=== PATIENT | male | born 1995 | race Caucasian/White ===

== ENCOUNTER 2024-06-19 10:56 | Emergency (ER) | payer MEDICAID, SELFPAY ==
[2024-06-19 11:03] VITALS: BP 159/97; PULSE 99; RESP 18; TEMP 37.2; O2SAT 98; BMI 33.9
--- NOTE | 2024-06-19 11:19 | XR_ITS ---
Examination: Testicular sonography complete Technique: Grayscale sonographic images testes with assessment arterial inflow venous outflow Doppler spectral analysis, flow analysis Exam date and time: June 19, 2024 1144 hrs. Indications: Testicular pain intermittent beginning 4 days ago Findings: Right testis 4.9 x 2.4 x 3.5 cm Epididymis 15 mm 9 mm epididymal cyst Arterial flow testicle. No testicular mass Mild hydrocele Left testis 5.2 x 2.7 x 3.3 cm Epididymis 16mm Arterial flow to the testicle. No testicular mass Mild hydrocele Impression: No testicular torsion or testicular mass 9 mm right epididymal cyst Mild bilateral hydroceles
--- NOTE | 2024-06-19 11:19 | XR_ITS ---
Examination: Lumbar spine 3 views Technique one AP lateral coned lateral lower lumbar spine 3 views Exam date and time: June 29, 2024 1128 hrs. Indications: Onset low back pain beginning 3 days ago. Findings: Mild disc narrowing L5-S1 No lumbar fracture No spondylolisthesis No cortical bone destruction Impression: Mild disc narrowing L5-S1
--- NOTE | 2024-06-19 11:20 | XR_ITS ---
Examination: CT abdomen with intravenous contrast CT pelvis with intravenous contrast 2-D coronal reconstructions 2-D sagittal reconstructions Date and time of exam:June 19, 2024 1321 hrs. Comparison August 24, 2020 Indications: Rectal bleeding right testicular pain back pain beginning 2.5 weeks ago. CTDI: vol (mGy) 2822 DLP: (mGycm) 1264 Technique: Multiple axial sections of the abdomen and pelvis have been obtained. 64 slice high-resolution scanner used. 3 mm axial sections have been obtained, post intravenous injection 60 cc [id number] 2-D sagittal, coronal reconstructions obtained. Low dose protocols were performed. One or more of the following dose reduction techniques were used; automated exposure control, adjustment of the mA and/or KV according to patient size, use of iterative reconstruction technique. Findings: No focal liver or splenic lesions No gallstones No pancreatic or adrenal mass No renal or ureteral calculi, no hydronephrosis Appendix is not visualized, no pericecal inflammatory change No bowel obstruction No diverticulitis No significant thickening of the rectal wall No prostatomegaly Contracted urinary bladder L5-S1 2 mm central lumbar disc bulge L4-L5 2 mm central lumbar disc bulge Moderate distention posteriorly L5-S1 Impression: No renal or ureteral calculi, no hydronephrosis No CT findings of appendicitis bowel obstruction or diverticulitis No nonspecific colitis or definite proctitis pattern Moderate disc narrowing posteriorly L5-S1
--- NOTE | 2024-06-19 11:21 | PD.EDRME ---
Rapid Medical Screening Exam [facility] Arrival date/time: 06/19/24 10:56 28-year-old male presents to the emergency department with multiple complaints. 1. Lumbar back pain. 2. Right testicular pain 3. Abdominal pain and bloody stools 2 days. I have greeted and performed a focused initial assessment of this patient. Initial appropriate labs ordered at this time. A comprehensive ED assessment and evaluation of the patient and analysis of all test and completion of medical decision making process will be conducted by additional ED provider. Chief Complaint: GI Bleed Time Seen by Provider: 06/19/24 11:02 Vital signs: Vital Signs Temperature 98.9 F 06/19/24 11:03 Pulse Rate 99 06/19/24 11:03 Respiratory Rate 18 06/19/24 11:03 Blood Pressure 159/97 H 06/19/24 11:03 Pulse Oximetry (%) 98 06/19/24 11:03 Oxygen Delivery Method Room Air 06/19/24 11:03
[2024-06-19 11:50] LABS: Collection Type, Urine Clean Catch; Squamous Epithelial Cell,Urine 0 /hpf (0-5)
[2024-06-19 11:52] LABS: Basophils # (Auto) 0.1 Thou/mm3 (0.0-0.2); Basophils % (Auto) 2 % (0-2.5); Eosinophils # (Auto) 0.7 Thou/mm3 (0.0-0.5); Eosinophils % (Auto) 11 % (0-10); Hematocrit 45.5 % (41.0-53.0); Hemoglobin 15.5 g/dL (13.5-16.0); Immature Granulocytes % (Auto) 0 % (0-0); Lymphocytes # (Auto) 1.8 Thou/mm3 (1.0-4.8); Lymphocytes % (Auto) 28 % (10-50); Mean Corpuscular HGB Conc 34.1 g/dl (31.0-37.0); Mean Corpuscular Hemoglobin 30.3 pg (25.0-35.0); Mean Corpuscular Volume 89 fL (80-100); Monocytes # (Auto) 0.4 Thou/mm3 (0.0-0.8); Monocytes % (Auto) 7 % (0-12); Neutrophils # (Auto) 3.5 Thou/mm3 (1.8-7.7); Neutrophils % (Auto) 53 % (37-80); Nucleated Red Blood Cell % 0 /100 WBC (0); Platelet Count 235 Thou/mm3 (140-440); RDW Standard Deviation 40.2 fL (35.1-43.9); Red Blood Count 5.12 Miln/mm3 (4.50-5.90); White Blood Count 6.5 Thou/mm3 (3.8-10.6)
[2024-06-19 12:16] LABS: Alanine Aminotransferase 33 U/L (10-49); Albumin, Serum 4.8 gm/dL (3.5-5.0); Albumin/Globulin Ratio 1.8 (1.2-2.2); Alkaline Phosphatase 61 U/L (46-116); Anion Gap 7 (7-16); Aspartate Amino Transferase 23 U/L (0-34); BUN/Creatinine Ratio 10 Ratio (12-20); Bilirubin,Total 0.3 mg/dL (0.3-1.2); Blood Urea Nitrogen 9 mg/dL (9-23); Calcium 9.2 mg/dL (8.3-10.6); Calcium (Corrected) 9.2 mg/dL (8.5-10.1); Carbon Dioxide 25.5 mMol/L (20.0-31.0); Chloride 106 mMol/L (98-107); Creatinine (Component) 0.9 mg/dL (0.6-1.3); Globulin 2.6 gm/dL (2.3-3.5); Glucose 99 mg/dL (74-106); Lipase 32 U/L (12-53); Magnesium 1.8 mg/dL (1.6-2.6); Osmolality,Calculated 274 (275-295); Potassium 4.6 mMol/L (3.4-5.1); Sodium 138 mMol/L (136-145); Total Protein 7.4 gm/dL (5.7-8.2); eGFR > 60 See Note
[2024-06-19 12:22] LABS: Bacteria,Urine Rare; Bilirubin,Urine Negative (Negative); Blood,Urine Trace (Negative); Clarity,Urine Clear (Clear/Hazy); Color,Urine Lt-Yellow (Lt Yel-Yel); Glucose, Urine Negative (Negative); Ketones,Urine Negative (Negative); Leukocyte Esterase,Urine Negative (Negative); Nitrite,Urine Negative (Negative); Protein,Urine 1+ (Neg - Trace); RBC,Urine 2 /hpf (0-3); Specific Gravity,Urine 1.025 (1.001-1.035); Urobilinogen,Urine Negative mg/dL (0.0-1.0); WBC,Urine 1 /hpf (0-5)
--- NOTE | 2024-06-19 14:51 | EDNOTE_ITS ---
<Statement entered by Rocio Mason MD - 07/01/24 19:31> As co-signing physician, I was present and available for consult prn. I concur with the plan and care as documented by the midlevel provider. ED GI Bleed RME/HPI General Chief complaint: GI Bleed Stated complaint: lower back pain, rectal bleeding, testicular pain Time Seen by Provider: 06/19/24 11:02 Arrival date/time: 06/19/24 10:56 RME / HPI RME / HPI Narrative: 28-year-old male patient with significant history of mental health problem, came in for evaluation regarding multiple complaints. First patient is having bright red blood per rectum, for the last few days, associated with rectal discomfort, low back pain, and right testicular pain. This been ongoing also for the last few days patient denies any dysuria. Denies any vomiting denies any other complaints patient is ambulatory. Related Data Home Medications ?Medication ?Instructions ?Recorded ?Confirmed acetaminophen 300 mg-codeine 30 mg 1 tab PO Q6H PRN Pa in 08/07/21 08/07/21 tablet Previous Rx's ?Medication ?Instructions ?Recorded cyclobenzaprine 10 mg tablet 10 mg PO TID PRN muscle s pasm #30 06/19/24 tabs hydrocortisone acetate 25 mg 25 mg CA BID #24 ea 06/19 rectal suppository (Anusol-HC) Allergies Allergy/AdvReac Type Severity Reaction Status Date / Time No Known Allergies Allergy Verified 06/19/24 10:59 Review of Systems Review of Systems Narrative Review of Systems: 28-year-old male patient with significant history of mental health problem, came in for evaluation regarding multiple complaints. First patient is having bright red blood per rectum, for the last few days, associated with rectal discomfort, low back pain, and right testicular pain. This been ongoing also for the last few days patient denies any dysuria. Denies any vomiting denies any other complaints patient is ambulatory. ED Exam Narrative Physical exam: 28-year-old male patient with significant history of mental health problem, came in for evaluation regarding multiple complaints. First patient is having bright red blood per rectum, for the last few days, associated with rectal discomfort, low back pain, and right testicular pain. This been ongoing also for the last few days patient denies any dysuria. Denies any vomiting denies any other complaints patient is ambulatory. Course Quality Measures none Orders Category Date Time Status CT Screening NOW Care 06/19/24 11:20 Active NPO STAT Care 06/19/24 11:[address] abdomen pelvis w con Stat Exams 06/19/24 11:20 Completed US testicular Stat Exams 06/19/24 11:19 Completed XR lumbar spine 2-3V Stat Exams 06/19/24 11:19 Completed CBC Stat Lab 06/19/24 11:36 Completed Comprehensive Metabolic Panel Stat Lab 06/19/24 11:36 Completed Lipase Stat Lab 06/19/24 11:36 Completed Magnesium Stat Lab 06/19/24 11:36 Completed Prothrombin Time with INR Stat Lab 06/19/24 11:36 Completed Urinalysis Stat Lab 06/19/24 11:41 Completed Vital Signs Vital signs: Vital Signs Temperature 98.9 F 06/19/24 11:03 Pulse Rate 99 06/19/24 11:03 Respiratory Rate 18 06/19/24 11:03 Blood Pressure 159/97 H 06/19/24 11:03 Pulse Oximetry (%) 98 06/19/24 11:03 Oxygen Delivery Method Room Air 06/19/24 11:03 GI Bleed MDM Narrative MDM Narrative:: 28-year-old male patient with significant history of mental health problem, came in for evaluation regarding multiple complaints. First patient is having bright red blood per rectum, for the last few days, associated with rectal discomfort, low back pain, and right testicular pain. This been ongoing also for the last few days patient denies any dysuria. Denies any vomiting denies any other complaints patient is ambulatory. Patient's workup today all came back unremarkable ultrasound of the scrotum showed hydrocele otherwise no torsion noted. CT scan of the abdomen and pelvis showed L5-S1 disc narrowing otherwise unremarkable. Results discussed with the patient. I did a rectal exam and scrotum exam with the patient's consent, he does not want anybody with us, I did not notice any swelling or tenderness of the scrotum, there is no palpable mass also on the rectal area no redness no bleeding noted Patient appears nontoxic and hemodynamically stable. Patient discharged home and instructed to follow-up with primary care provider in 24 to 48 hours. Instructed to return to the emergency department immediately if worsening of symptoms Patient data External records reviewed:: None Clinical information provided by:: patient Social determinants that could affect healthcare access:: mental health Patient has the following chronic illnesses:: Mental health problem How is presenting disease/condition affected by chronic disease/condition?: uneffected by Evaluation data The following diagnostics were reviewed and interpreted by me:: lab results and radiology exam(s) Lab and/or radiology exams considered but not ordered:: None Interpretation Summary: See results in MDM Medications / Prescriptions Medications or Prescriptions considered but not ordered:: None Medication administrations:: None Consultations Consultation(s) initiated? (list below): No Diagnosis GI bleed differential diagnosis: hemorrhoids, Glenda-Vee syndrome and Lower gastrointestinal hemorrhage Most likely diagnosis given after review of the tests above:: Low back pain, hydrocele, bright red blood per rectum Admission Indicated Admission indicated?: not indicated Explain why admission is indicated or not indicated:: Stable Admission Request Was there a request for admission?: No Disposition Plan Disposition Plan: Discharge Discharge Attestation Discharge Attestation: The patient and all family members were given an opportunity to ask questions and understood the discharge instructions. Discharge instructions specifically effects, indications for sooner follow up or return to the emergency department, and the expected course of current diagnosis. Patient condition: Stable Discharge Plan Plan Patient Disposition: HOME (Self Care) Disposition Comment: Stable Prescriptions/Referrals Prescriptions/Med Rec: New hydrocortisone acetate [Anusol-HC] 25 mg suppository 25 mg CA BID Qty: 24 0RF cyclobenzaprine 10 mg tablet 10 mg PO TID PRN (Reason: muscle spasm) Qty: 30 0RF No Action acetaminophen-codeine 300-30 mg tablet 1 tab PO Q6H PRN (Reason: Pain) Patient Comments: TAKE ONE TABLET BY MOUTH EVERY 6 HOURS NEEDED FOR PAIN FOR 3 DAYS Referrals: Lani Perkins OUTPATIENT INTERVIEWING CLERK [Primary Care Provider] - In 1 week Problem List Clinical Impression: Low back pain, Bright red blood per rectum, Hydrocele Patient/Caregiver Discharge Instructions Discharge Activity: activity as tolerated Education Materials: Back Exercises: Back Press Additional Instructions: Thank you for the opportunity for serving you today. You are stable for discharged . You are advised to: Follow-up with your PCP in 1 to 2 days and as per referral to GI specialist Return to ED for worsening of symptoms Increase oral fluids Take medication as prescribed Print Language: Anguillan Stand Alone Forms: [place] Award Info., Patient Portal Info Letter PA/AUTOMOTIVE SALES SPECIALIST Supervising Physician PA/AUTOMOTIVE SALES SPECIALIST Supervising Physician: MD Demetra
== END 2024-06-19 15:01 | disposition home or self-care (01) ==
PROVIDERS: Nurse Practitioner Primary Care; Emergency Provider Emergency Medicine; PCP Nurse Practitioner Family
DX: N43.3 Hydrocele, unspecified (principal); K62.5 Hemorrhage of anus and rectum; M48.07 Spinal stenosis, lumbosacral region
CPT/HCPCS: 36415; 72100; 74177; 76870; 80053; 81001; 83690; 83735; 85025; 85610; 99285; A4649; Q9967

== ENCOUNTER 2024-10-21 21:41 | Emergency (ER) | payer MEDICAID, SELFPAY ==
[2024-10-21 21:42] VITALS: BMI 31.1
[2024-10-21 22:04] VITALS: BP 149/96; BP 155/102; PULSE 111; RESP 20; TEMP 37.3; O2SAT 98
--- NOTE | 2024-10-21 22:58 | XR_ITS ---
Examination: CT maxillofacial, with contrast 2-D sagittal and coronal reconstructions. 3-D reconstructions Date and time of exam:October 22, 2024 0026 hours INDICATIONS: Bleeding secondary to tooth extractions today CTDI: vol (mGy):15 DLP: (mGycm):271 Technique: Multiple axial images maxillofacial region, 3.0 mm slice thickness, post intravenous injection excc Isovue 370. 2-D sagittal coronal reconstructions. 3-D reconstructions Low dose protocols were performed. One or more of the following dose reduction techniques were used; automated exposure control, adjustment of the mA and/or KV according to patient size, use of iterative reconstruction technique. Findings: Extraction left mandibular molar with soft tissue air density and soft tissue swelling Extraction left maxillary molar with bone discontinuity involving the maxilla and hemorrhage in the left maxillary antrum Air in the soft tissue adjacent to the left maxilla and mandible No organized hematoma IMPRESSION: Mandibular and maxillary tooth extractions as above
[2024-10-21] MEDS: TRANEXAMIC ACID INJ 1,000 MG/10 ML VIAL 1000 MG IV (23:25)
[2024-10-21] MEDS: SODIUM CHLORIDE 0.9% 1000 ML 1,000 ML 500 ML IV (23:25)
[2024-10-21 23:26] VITALS: BP 151/102; PULSE 94; RESP 20; TEMP 37.1; O2SAT 95
[2024-10-21] MEDS: AMPICILLIN/SULBAC INJ 3 GM in SODIUM CHLORIDE 0.9% (POP) 100 ML IV (23:26)
[2024-10-21 23:42] LABS: Basophils % (Auto) 0 % (0-2.5); Eosinophils % (Auto) 0 % (0-10); Hematocrit 44.3 % (41.0-53.0); Hemoglobin 15.3 g/dL (13.5-16.0); Immature Granulocytes % (Auto) 0 % (0-0); Immature Granulocytes Auto 0.05 Thou/mm3 (0.00-0.00); Lymphocytes # (Auto) 0.9 Thou/mm3 (1.0-4.8); Lymphocytes % (Auto) 7 % (10-50); Mean Corpuscular HGB Conc 34.5 g/dl (31.0-37.0); Mean Corpuscular Hemoglobin 30.8 pg (25.0-35.0); Mean Corpuscular Volume 89 fL (80-100); Monocytes # (Auto) 0.7 Thou/mm3 (0.0-0.8); Monocytes % (Auto) 5 % (0-12); Neutrophils # (Auto) 10.9 Thou/mm3 (1.8-7.7); Neutrophils % (Auto) 87 % (37-80); Nucleated Red Blood Cell % 0 /100 WBC (0); Platelet Count 270 Thou/mm3 (140-440); RDW Standard Deviation 41.9 fL (35.1-43.9); Red Blood Count 4.97 Miln/mm3 (4.50-5.90); White Blood Count 12.5 Thou/mm3 (3.8-10.6)
[2024-10-21 23:50] LABS: Partial Thromboplastin Time 27.1 Seconds (22.0-36.0); Prothrombin Time 11.3 Seconds (9.0-12.2)
[2024-10-22] LABS: Alanine Aminotransferase 53 U/L (10-49); Albumin, Serum 4.9 gm/dL (3.5-5.0); Albumin/Globulin Ratio 1.8 (1.2-2.2); Alkaline Phosphatase 47 U/L (46-116); Anion Gap 13 (7-16); Aspartate Amino Transferase 32 U/L (0-34); BUN/Creatinine Ratio 15 Ratio (12-20); Bilirubin,Total 0.8 mg/dL (0.3-1.2); Blood Urea Nitrogen 15 mg/dL (9-23); Calcium 9.4 mg/dL (8.3-10.6); Calcium (Corrected) 9.4 mg/dL (8.5-10.1); Carbon Dioxide 24.2 mMol/L (20.0-31.0); Chloride 102 mMol/L (98-107); Estimated Creatinine Clearance 133.7 mL/min (>60); Globulin 2.7 gm/dL (2.3-3.5); Glucose 115 mg/dL (74-106); Osmolality,Calculated 279 (275-295); Potassium 4.4 mMol/L (3.4-5.1); Sodium 139 mMol/L (136-145); Total Protein 7.6 gm/dL (5.7-8.2); eGFR > 60 See Note
[2024-10-22] MEDS: ONDANSETRON INJ 2 MG/ML INJ 2 ML 4 MG IV (00:02)
[2024-10-22] MEDS: TRANEXAMIC ACID INJ 1,000 MG/10 ML VIAL 1000 MG IV (00:04)
--- NOTE | 2024-10-22 01:22 | PRELIM_ITS ---
CT maxillofacial with intravenous contrast (axial sections with 3D, sagittal and coronal reformats) October 22, 2024 0026 hours Clinical History: Excessive bleeding from dental extractions Findings: The evaluation is limited due to streak artifact from dental implants. There is evidence of left mandibular molar teeth extraction with adjacent packing material in place. There is also evidence of left maxillary molar tooth extraction with erosion/scalloping of the alveolar socket and erosion of the f nohelia of left maxillary sinus. There is left maxillary hemosinus. There is no acute maxillofacial fracture. The right maxillary sinus and bilateral orbital valladares are intact. The globes and other intraorbital contents are unremarkable. The zygomatic arches and mandible are otherwise intact. There is ill-defined soft tissue edema/heme and emphysema overlying the left mandible/maxilla. Impression: Limited evaluation as described. Left mandibular molar teeth extraction with adjacent packing material in place. Left maxillary molar tooth extraction with erosion/scalloping of the alveolar socket and erosion of the floor of left maxillary sinus. Left maxillary hemosinus Ill-defined soft tissue edema/heme and emphysema overlying the left mandible/maxilla. No discrete organized hematoma or contrast blush Report Electronically Signed By: Jelani Ortez 10/22/2024 1:21:38 AM [EST]
[2024-10-22 01:34] VITALS: BP 138/76; PULSE 98; RESP 16; TEMP 36.6; O2SAT 95
--- NOTE | 2024-10-22 02:44 | EDNOTE_ITS ---
<Statement entered by Rocio Mason MD - 10/22/24 18:27> As co-signing physician, I was present and available for consult prn. I concur with the plan and care as documented by the midlevel provider. ED Dental RME/HPI General Chief complaint: Dental/Oral/Throat Stated complaint: WIDSOM TOOTH SURGERY BLEEDING Time Seen by Provider: 10/21/24 22:58 Arrival date/time: 10/21/24 21:41 29M with no significant PMH presents to ED with dental bleeding s/p wisdom tooth surgery in [place] today. Patient states he was fine before leaving facility, but bleeding started spontaneously and has gotten worse. Limitations: no limitations Related Data Home Medications ?Medication ?Instructions ?Recorded ?Confirmed acetaminophen 300 mg-codeine 30 mg 1 tab PO Q6H PRN Pa in 08/07/21 08/07/21 tablet Previous Rx's ?Medication ?Instructions ?Recorded cyclobenzaprine 10 mg tablet 10 mg PO TID PRN muscle s pasm #30 06/19/24 tabs hydrocortisone acetate 25 mg 25 mg VT BID #24 ea 06/19 rectal suppository (Anusol-HC) amoxicillin 875 mg-potassium 1 tab PO BID 7 days #14 t abs 10/22/24 clavulanate 125 mg tablet Allergies Allergy/AdvReac Type Severity Reaction Status Date / Time No Known Allergies Allergy Verified 10/21/24 21:42 Review of Systems Review of Systems Systems Reviewed: All systems reviewed, normal except as documented Constitutional Constitutional: Reports system reviewed and no additional complaints, except as documented, Denies fever(s) and Denies headache(s) ENT Ears, Nose, Mouth, and Throat: Reports as per HPI, Denies disequilibrium, Reports facial pain (dental bleeding) and Denies headache(s) Cardiovascular Cardiovascular: Reports system reviewed and no additional complaints, except as documented, Denies chest pain and Denies dyspnea Respiratory Respiratory: Reports system reviewed and no additional complaints, except as documented, Denies cough and Denies dyspnea Gastrointestinal Gastrointestinal: Reports system reviewed and no additional complaints, except as documented, Denies abdominal pain, Denies nausea and Denies vomiting Neurologic Neurologic: Reports system reviewed and no additional complaints, except as documented, Denies confusion, Denies disequilibrium and Denies headache(s) Psychiatric Psychiatric: Denies confusion Past Medical History Past Medical History NEUROLOGIC: Negative Neurological Disorders or Seizures CARDIAC: Negative Cardiac Disorders or Congestive Heart Failure RESPIRATORY: Positive Asthma; Negative Chronic Obstructive Pulmonary Disease (COPD) GASTROINTESTINAL: Negative Gastrointestinal Disorders GENITOURINARY: Negative Genitourinary Disorders or Renal Disease REPRODUCTIVE: Negative Breast Cancer MUSCULOSKELETAL: Negative Musculoskeletal Disorders ENDOCRINE: Negative Endocrine Disorders, Diabetes Mellitus Type 1 or Diabetes Mellitus Type 2 HEMATOLOGIC: Negative Blood Disorders or Sickle Cell Disease PSYCHO/SOCIAL: Positive Depression and Anxiety OTHER HISTORY: Negative Autoimmune Disease, Blood Transfusions, Blood Transfusion Reaction, Anesthesia Reactions, Organ Transplant, MRSA, Clostridium Difficile or Breast Cancer Surgical History SURGICAL: Positive Abdominal Surgery; Negative Cardiac Surgery, Endocrine Surgery, Ear Surgery, Nephrectomy, Joint Replacement, Neurologic Surgery, Vasectomy or Organ Transplant Social History SMOKING STATUS: Never smoker ED Exam General Limitations: Present no limitations General appearance: Present alert and in no apparent distress Head Head exam: Present atraumatic Eye Eye exam: Present normal appearance, PERRL and EOMI ENT ENT exam: Present mucous membranes moist Expanded ENT Exam Teeth exam: Present other (L dental bleeding) Neck Neck exam: Present normal inspection, full ROM and trachea midline Chest Chest inspection: Present normal inspection and symmetric chest wall rise Respiratory Respiratory exam: Present normal lung sounds bilaterally Cardiovascular Cardiovascular exam: Present regular rate, normal rhythm and normal heart sounds Abdominal Exam Abdominal exam: Present soft and normal bowel sounds Extremities Exam Extremities exam: Present normal inspection and full ROM Back Exam Back exam: Present normal inspection and full ROM Neurological Exam Neurological exam: Present alert, oriented X3 and CN II-XII intact Psychiatric Psychiatric exam: Present normal affect and normal mood Skin Skin exam: Present warm, dry, intact and normal color Course Quality Measures none Orders Category Date Time Status CT Screening NOW Care 10/21/24 22:59 Completed Insert IV NOW Care 10/21/24 23:[address] facial bones w con Stat Exams 10/21/24 22:58 Taken CBC Stat Lab 10/21/24 23:19 Completed CMP [Comprehensive Metabolic Panel] Stat Lab 10/21/24 23:19 Completed INR [Prothrombin Time with INR] Stat Lab 10/21/24 23:19 Completed PTT [Partial Thromboplastin Time] Stat Lab 10/21/24 23:19 Completed Type and Screen Stat Lab 10/21/24 23:19 Completed Ampicillin/Sulbac Inj [Unasyn Inj] 3 gm Med 10/21/24 22:58 Discontinued Sodium Chloride 0.9% (Pop) [NS 0.9% mini bag] 100 ml IV X1 Ondansetron Inj [Zofran Inj] Med 10/21/24 23:39 Discontinued 4 mg IV X1 ONE Sodium Chloride 0.9% 1000 ml [Ns] 1,000 ml Med 10/21/24 22:58 Discontinued IV 500 mls/hr Tranexamic Acid Inj Med 10/21/24 23:05 Discontinued 1,000 mg IV X1 ONE Tranexamic Acid Inj Med 10/21/24 23:41 Discontinued 1,000 mg IV X1 ONE Vital Signs Vital signs: Vital Signs Temperature 99.2 F 10/21/24 22:04 Pulse Rate 111 H 10/21/24 22:04 Respiratory Rate 20 10/21/24 22:04 Blood Pressure 155/102 H 10/21/24 22:04 Pulse Oximetry (%) 98 10/21/24 22:04 Oxygen Delivery Method Room Air 10/21/24 22:04 O2 at 98% on RA and WNLs Dental / Oral MDM Narrative MDM Narrative:: 29M with no significant PMH presents to ED with dental bleeding s/p wisdom tooth surgery in [place] today. Patient states he was fine before leaving facility, but bleeding started spontaneously and has gotten worse. Patient was discharged with amoxicillin. Physical exam reveals bleeding from L upper and lower wisdom teeth area/pocket. Patient is afebrile, calm, and alert. Minimal leukocytosis but no anemia. CMP unremarkable. Coags normal. CT reveals some L maxillary hemosinus, but no definite hematoma. Bleeding was stopped with combo of topical and parenteral TXA. Will switch amoxicillin to Augmentin. Patient data External records reviewed:: [facility] previous records Clinical information provided by:: patient Social determinants that could affect healthcare access:: none Patient has the following chronic illnesses:: none How is presenting disease/condition affected by chronic disease/condition?: no chronic disease Evaluation data The following diagnostics were reviewed and interpreted by me:: lab results and radiology exam(s) Lab and/or radiology exams considered but not ordered:: ordered Interpretation Summary: above Medications / Prescriptions Medications or Prescriptions considered but not ordered:: ordered Medication administrations:: Medication Administration History Discontinued Medications Sodium Chloride (Ns) 1,000 mls @ 500 mls/hr IV .Q2H ONE Stop: 10/22/24 00:57 Last Infusion: 10/22/24 01:33 Dose: Infused Documented By: Admin: 10/21/24 23:25 Dose: 500 mls/hr Documented By: DHEERAJ Ampicillin Sodium/Sulbactam (Sodium 3 gm/ Sodium Chloride) 100 mls @ 200 mls/hr IV X1 ONE Stop: 10/21/24 22:59 Last Infusion: 10/22/24 00:04 Dose: Infused Documented By: Admin: 10/21/24 23:26 Dose: 200 mls/hr Documented By: DHEERAJ Ondansetron HCl (Ondansetron Inj 2 Mg/Ml Inj 2 Ml) 4 mg IV X1 ONE; Protocol Stop: 10/21/24 23:40 Last Admin: 10/22/24 00:02 Dose: 4 mg Documented By: DHEERAJ Tranexamic Acid (Tranexamic Acid Inj 1,000 Mg/10 Ml Vial) 1,000 mg IV X1 ONE Stop: 10/21/24 23:06 Last Admin: 10/21/24 23:25 Dose: 1,000 mg Documented By: DHEERAJ Tranexamic Acid (Tranexamic Acid Inj 1,000 Mg/10 Ml Vial) 1,000 mg IV X1 ONE Stop: 10/21/24 23:42 Last Admin: 10/22/24 00:04 Dose: 1,000 mg Documented By: DHEERAJ above Consultations Consultation(s) initiated? (list below): No Diagnosis Dental Differential Diagnosis: gingival abscess, dental caries, toothache, dental abscess, fracture of tooth, aphthous ulcer and other (postop bleeding) Most likely diagnosis given after review of the tests above:: postop bleeding Admission Indicated Admission indicated?: not indicated Admission Request Was there a request for admission?: No Disposition Plan Disposition Plan: Discharge Discharge Attestation Discharge Attestation: The patient and all family members were given an opportunity to ask questions and understood the discharge instructions. Discharge instructions specifically effects, indications for sooner follow up or return to the emergency department, and the expected course of current diagnosis. Patient condition: Stable Discharge Plan Plan Patient Disposition: HOME (Self Care) Discharge Disposition comment: Stable Prescriptions/Referrals Prescriptions/Med Rec: New amoxicillin-pot clavulanate 875-125 mg tablet 1 tab PO BID 7 Days Qty: 14 0RF No Action acetaminophen-codeine 300-30 mg tablet 1 tab PO Q6H PRN (Reason: Pain) Patient Comments: TAKE ONE TABLET BY MOUTH EVERY 6 HOURS NEEDED FOR PAIN FOR 3 DAYS hydrocortisone acetate [Anusol-HC] 25 mg suppository 25 mg VT BID Qty: 24 0RF cyclobenzaprine 10 mg tablet 10 mg PO TID PRN (Reason: muscle spasm) Qty: 30 0RF Referrals: Lani Perkins, PLANNING ANALYST [Primary Care Provider] - In 1 week Problem List Clinical Impression: Post-op bleeding Patient/Caregiver Discharge Instructions Additional Instructions: Please follow-up with PCP within 24-48 hours and return immediately if symptoms worsen. Follow dentist's instructions and have close follow-up with them. Stop amoxicillin and taken Augmentin. Print Language: Latvian Stand Alone Forms: Patient Portal Info Letter LORI/KURT Supervising Physician LORI/KURT Supervising Physician: Dr. Mason
== END 2024-10-22 01:36 | disposition home or self-care (01) ==
PROVIDERS: Physician Assistant; Emergency Provider Emergency Medicine; PCP Nurse Practitioner Family
DX: K91.840 Postprocedural hemorrhage of a digestive system organ or structure following a digestive system procedure (principal)
CPT/HCPCS: 36415; 70487; 80053; 85025; 85610; 85730; 86850; 86900; 86901; 96361; 96365; 96375; 99285; A4649; J0295; J2405; J3490; J7030; Q9967

== ENCOUNTER 2024-10-25 21:23 | Emergency (ER) | payer MEDICAID, SELFPAY ==
--- NOTE | 2024-10-25 21:30 | PD.EDSYNC ---
ED Syncope RME/HPI General Chief Complaint: Syncope / Near Syncope Stated Complaint: NEAR SYNCOPE Time Seen by Provider: 10/25/24 21:39 Arrival date/time: 10/25/24 21:23 RME / HPI RME / HPI narrative: Dr. Mason?s Main ED Evaluation: 29yo male JOANN from home presents to the ED for a chief complaint of near syncope. Patient states he restarted his Zoloft and Seroquel today after not taking it for 5 days due to having a dental procedure on Friday in [place]. Patient states he has felt generally weak, dizzy, and lightheaded since 1999 after he took his medications, reporting when he went to use the restroom he almost passed out on the toilet, so he came in for evaluation. Mom notes the patient took his Zoloft, Seroquel, Lamictal, Augmentin, and Ibuprofen today. Patient denies any hematemesis, hematochezia, melena, cough, chest pain, abdominal pain, runny nose or any other associated symptoms. Denies any tobacco, alcohol or illicit drug use. Blood sugar with EMS was 152. Related Data Home Medications ?Medication ?Instructions ?Recorded ?Confirmed acetaminophen 300 mg-codeine 30 mg 1 tab PO Q6H PRN Pain 08/07/21 08/07/21 tablet Previous Rx's ?Medication ?Instructions ?Recorded cyclobenzaprine 10 mg tablet 10 mg PO TID PRN muscle spasm #30 06/19/24 tabs hydrocortisone acetate 25 mg 25 mg MS BID #24 ea 06/19/24 rectal suppository (Anusol-HC) amoxicillin 875 mg-potassium 1 tab PO BID 7 days #14 tabs 10/22/24 clavulanate 125 mg tablet Allergies Allergy/AdvReac Type Severity Reaction Status Date / Time No Known Allergies Allergy Verified 10/25/24 21:32 Review of Systems Review of Systems Systems Reviewed: All systems reviewed, normal except as documented Past Medical History Past Medical History NEUROLOGIC: Negative Neurological Disorders or Seizures CARDIAC: Negative Cardiac Disorders or Congestive Heart Failure RESPIRATORY: Positive Asthma; Negative Chronic Obstructive Pulmonary Disease (COPD) GASTROINTESTINAL: Negative Gastrointestinal Disorders GENITOURINARY: Negative Genitourinary Disorders or Renal Disease REPRODUCTIVE: Negative Breast Cancer MUSCULOSKELETAL: Negative Musculoskeletal Disorders ENDOCRINE: Negative Endocrine Disorders, Diabetes Mellitus Type 1 or Diabetes Mellitus Type 2 HEMATOLOGIC: Negative Blood Disorders or Sickle Cell Disease PSYCHO/SOCIAL: Positive Depression and Anxiety OTHER HISTORY: Negative Autoimmune Disease, Blood Transfusions, Blood Transfusion Reaction, Anesthesia Reactions, Organ Transplant, MRSA, Clostridium Difficile or Breast Cancer Surgical History SURGICAL: Positive Abdominal Surgery; Negative Cardiac Surgery, Endocrine Surgery, Ear Surgery, Nephrectomy, Joint Replacement, Neurologic Surgery, Vasectomy or Organ Transplant Social History SMOKING STATUS: Never smoker ED Exam Narrative Physical exam: GEN. APPEARANCE: The patient is slow to respond, somnolent, in no distress, lying down comfortably. VITALS: All vitals were reviewed and the pulse ox is 97% on room air which is normal according to my interpretation. Hypotensive at 75/50. HEENT: Normocephalic, atraumatic. Pupils are equal and reactive. Oral mucosa is moist. Patent Nares NECK: Supple, nontender, no thyromegaly, no meningismus, no JVD CHEST: Symmetrical, atraumatic, and with equal expansion , Nontender on palpation no deformity and no crepitus. CARDIOVASCULAR: Tachycardic, regular rhythm no murmur or gallop rub or extra beats. LUNGS: Clear to auscultation bilaterally with symmetrical chest rise. No laboring tachypnea or wheezing. No intercostal subcostal retraction. No rales and no rhonchi. ABDOMEN: Soft, flat, nontender to palpation, no guarding or rebound tenderness. There are no abnormal masses palpated. Active and normal bowel sounds. EXTREMITIES: Nontender. No edema. No cyanosis. Patient is able to move all 4 extremities well, with full ROM and good CSM. SKIN: Warm and diaphoretic, no jaundice or rashes noted. MUSCULOSKELETAL: No lumbar or midline bony tenderness. There is no CVA tenderness. No paraspinal muscle spasm or tenderness. NEURO: Patient is slow to respond, somnolent, Cranial nerves II through XII grossly intact. There is no focal neurologic deficits noted. GCS is 15, PNS and REEL ASSEMBLER appear grossly intact. Course Quality Measures Possible source: skin/soft tissue Blood cultures ordered: yes Antibiotic ordered: Yes Pertinent labs: 10/25/24 10/26/24 22:24 00:36 Lactic Acid 3.1 H mMol/L 1.5 mMol/L (0.4-2.0) (0.4-2.0) Procalcitonin 0.19 ng/ml (0.0-0.49) sepsis Orders Category Date Time Status CT Screening NOW Care 10/25/24 22:04 Active EKG (ED ONLY) *Do not use* NOW Care 10/25/24 21:40 Completed EKG (ED ONLY) *Do not use* NOW Care 10/26/24 00:[address] facial bones w con Stat Exams 10/25/24 22:[address] head/brain wo con Stat Exams 10/25/24 22:07 Taken EKG (ED Only) Stat Exams 10/25/24 21:40 Draft EKG (ED Only) Stat Exams 10/26/24 00:13 Draft Blood Culture (Lab) Stat Lab 10/25/24 22:09 Received CBC Stat Lab 10/25/24 22:24 Completed CK [Creatine Kinase] Stat Lab 10/25/24 22:24 Completed CMP [Comprehensive Metabolic Panel] Stat Lab 10/25/24 22:24 Completed Drug Screen,Urine Stat Lab 10/25/24 23:33 Completed Lactate (Lactic Acid) Stat Lab 10/25/24 22:24 Completed Lactate (Lactic Acid) Stat Lab 10/26/24 00:36 Completed Procalcitonin Stat Lab 10/25/24 22:24 Completed Troponin I Stat Lab 10/25/24 22:24 Completed Type and Screen Stat Lab 10/25/24 22:24 Completed Urinalysis, C/S if Indicated Stat Lab 10/25/24 23:33 Completed Urine Culture Stat Lab 10/25/24 23:33 Received Ondansetron Inj [Zofran Inj] Med 10/25/24 23:10 Discontinued 4 mg IVP X1 ONE Ringers Lactated 1000 ml [Lactated Ringers] 1,000 ml Med 10/25/24 21:39 Discontinued IV 999 mls/hr cefTRIAXone/D5w 1gm IV premix [Rocephin/D5w 1gm IV Med 10/25/24 22:02 Pending premix] 1 gm in 50 ml IV QDAY cefTRIAXone/D5w 1gm IV premix [Rocephin/D5w 1gm IV Med 10/25/24 22:15 Discontinued premix] 1 gm in 50 ml IV X1 Vital Signs Vital signs: Vital Signs Temperature 99.0 F 10/25/24 21:38 Pulse Rate 127 H 10/25/24 21:38 Respiratory Rate 22 H 10/25/24 21:38 Blood Pressure 75/50 L 10/25/24 21:38 Pulse Oximetry (%) 97 10/25/24 21:38 Oxygen Delivery Method Room Air 10/25/24 21:38 Syncope MDM Narrative MDM Narrative:: Scribe Attestation: 10/25/24 - IJody am scribing for and in the presence of Dr. Mason. Patient took Lamictal 25mg, Seroquel 100mg, lisinopril, and an unknown amount of Zoloft per mom. Patient's blood pressure is 75/50. Will need to consult poison control. 2141: Sepsis alert initiated. Orders made at this time are congruent with ED Adult Sepsis Order List. Re-evaluation is to be completed. 4: LR IVF started. 3: Discussed case with poison control regarding consultation. Discussed patients ED course and exam findings. Recommends giving the patient: Magnesium if QT is prolonged, Bicarb if QRS >12, and to repeat the EKG in 2 hours. 2328: Sepsis reassessment performed consisting of lab review, vitals, physical exam including auscultation of heart, lungs, and visual evaluation of capillary refills, mucosal membranes and extremities. 0212: Lactic acid down trended following fluid resuscitation. Labs reassuring, no evidence of acute infection. Patient without any dysuria, urinalysis does have some white blood cells we will send for culture. Will not treat empirically at this time. CT face and CT brain, with evidence of left sinus sinusitis, no evidence of abscess no other abnormalities. Patient is currently on Augmentin. On reevaluation patient hemodynamically stable not in distress tolerating oral intake. Will discharge home close return precautions follow-up with his primary care doctor Patient data External records reviewed:: [facility] previous records (Per chart review, patient was seen here on 10/22/24 for postop bleeding.) and EMS form Clinical information provided by:: patient and parent Social determinants that could affect healthcare access:: none Patient has the following chronic illnesses:: HTN, asthma How is presenting disease/condition affected by chronic disease/condition?: uneffected by Evaluation data The following diagnostics were reviewed and interpreted by me:: lab results, radiology exam(s) and EKG tracing(s) Lab and/or radiology exams considered but not ordered:: none Interpretation Summary: WBC 11.9, Lactic Acid 3.1, Procalcitonin normal, UDS is positive for benzodiazepines and marijuana. EKG done at 2145, sinus tachycardia, rate of 111, normal intervals, ST depression in lead II, nonspecific ST-T changes, no STEMI, according to my interpretation. Repeat EKG done at 0029, sinus tachycardia, rate of 102, normal axis, normal intervals, no acute ischemia, according to my interpretation. [facility] Preliminary Report Draft Patient: RUPERTO ESPINOZA [facility]. Record#: [id number] Birthdate: 1995 Age/Sex: 29 / M Location: [facility] Attending Dr: Ordering Physician: Date of Service: Procedure(s): Accession Number(s): cc: ~ CT scan of the head without intravenous contrast (axial sections with sagittal and coronal reformats) October 26, 2024 at 0006 hours Clinical History: Head trauma. Comparison: No prior study is available for comparison. Findings: No evidence of intracranial hemorrhage, mass effect or midline shift. The ventricles and CSF spaces are unremarkable. The calvarium is intact. The mastoid air cells are clear. Debris and air-fluid level within the left maxillary sinus. Impression: No evidence of intracranial hemorrhage, midline shift or calvarial fracture. Left maxillary sinusitis. Report Electronically Signed By: Huy Bustillo 10/26/2024 12:54:33 AM T[facility] Preliminary Report Draft Patient: RUPERTO ESPINOZA [facility]. Record#: [id number] Birthdate: 1995 Age/Sex: 29 / M Location: [facility] Attending Dr: Ordering Physician: Date of Service: Procedure(s): Accession Number(s): cc: ~ CT maxillofacial with intravenous contrast (axial sections with sagittal and coronal reformats). October 26, 2024 at 0008 hours Clinical History: Abscess, post tooth extraction. Comparison: Compared with the prior CT study dated October 22, 2024. Findings: There is no fracture. The maxillary sinus and orbital valladares are intact. Air-fluid level and heterogenous material within the left maxillary sinus. No evidence of muscle entrapment, intraorbital hematoma, proptosis, globe injury or radiodense foreign body. The zygomatic arches and mandible are intact. The visualized soft tissues are unremarkable. Status post extraction of the most posterior left mandibular molar tooth. No evidence of abscesses. No evidence of abnormal contrast enhancement. Impression: Left maxillary sinusitis. No evidence of abscesses. Report Electronically Signed By: Huy Bustillo 10/26/2024 12:57:08 AM Medications / Prescriptions Medications or Prescriptions considered but not ordered:: none Medication administrations:: Medication Administration History Ceftriaxone Sodium/Dextrose (Rocephin/D5w 1gm Iv Premix) 1 gm in 50 mls @ 100 mls/hr IV QDAY CARMELITA Stop: 11/01/24 22:01 Discontinued Medications Lactated Ringer's (Lactated Ringers) 1,000 mls @ 999 mls/hr IV .Q1H1M ONE Stop: 10/25/24 22:39 Last Infusion: 10/25/24 22:58 Dose: Infused Documented By: Admin: 10/25/24 21:44 Dose: 999 mls/hr Documented By: DHEERAJ Ceftriaxone Sodium/Dextrose (Rocephin/D5w 1gm Iv Premix) 1 gm in 50 mls @ 100 mls/hr IV X1 ONE Stop: 10/25/24 22:44 Last Infusion: 10/25/24 22:57 Dose: Infused Documented By: Admin: 10/25/24 22:24 Dose: 100 mls/hr Documented By: DHEERAJ Ondansetron HCl (Ondansetron Inj 2 Mg/Ml Inj 2 Ml) 4 mg IVP X1 ONE; Protocol Stop: 10/25/24 23:11 Last Admin: 10/25/24 23:32 Dose: 4 mg Documented By: DHEERAJ see above Consultations Consultation(s) initiated? (list below): No Diagnosis Syncope Differential Diagnosis: dehydration and other (sinus abscess, polypharmacy, sepsis, metabolic derangement) Most likely diagnosis given after review of the tests above:: emesis, marijuana use, polypharmacy Admission Indicated Admission indicated?: not indicated Admission Request Was there a request for admission?: No Disposition Plan Disposition Plan: Discharge Discharge Attestation Discharge Attestation: The patient and all family members were given an opportunity to ask questions and understood the discharge instructions. Discharge instructions specifically effects, indications for sooner follow up or return to the emergency department, and the expected course of current diagnosis. Patient condition: Stable Critical Care Time Critical Care Time Critical Care Time: Yes Total Critical Care Time (min.): 35 Attestation: The high probability of sudden, clinically significant deterioration in the patient?s condition required the highest level of my preparedness to intervene urgently. The services I provided to this patient were to treat and/or prevent clinically significant deterioration. Services included the following: chart data review, reviewing nursing notes and/or old charts, documentation time, recruiting consultant collaboration regarding findings and treatment options, medication orders and management, direct patient care, vital sign assessments and ordering, interpreting and reviewing diagnostic studies and lab tests. Aggregate critical care time includes only time during which I was engaged in work directly related to the patient?s care, as described above, whether at bedside or elsewhere in the Emergency Department. It did not include time spent performing other reported procedures or the services of residents, students, nurses or physician assistants. Discharge Plan Plan Patient Disposition: HOME (Self Care) Prescriptions/Referrals Prescriptions/Med Rec: No Action acetaminophen-codeine 300-30 mg tablet 1 tab PO Q6H PRN (Reason: Pain) Patient Comments: TAKE ONE TABLET BY MOUTH EVERY 6 HOURS NEEDED FOR PAIN FOR 3 DAYS hydrocortisone acetate [Anusol-HC] 25 mg suppository 25 mg MS BID Qty: 24 0RF cyclobenzaprine 10 mg tablet 10 mg PO TID PRN (Reason: muscle spasm) Qty: 30 0RF amoxicillin-pot clavulanate 875-125 mg tablet 1 tab PO BID 7 Days Qty: 14 0RF Referrals: No Primary/Family,Physician [Referring Provider] - In 1 week Problem List Clinical Impression: Emesis, Polypharmacy, Marijuana abuse Patient/Caregiver Discharge Instructions Education Materials: ED Marijuana Abuse, ED Vomiting (Adult) Print Language: Sammarinese Stand Alone Forms: [place] Award Info., Patient Portal Info Letter
[2024-10-25 21:33] VITALS: PULSE 130; RESP 22; O2SAT 99
[2024-10-25 21:36] VITALS: BMI 29.8
[2024-10-25 21:38] VITALS: BP 75/50; PULSE 127; RESP 22; TEMP 37.2; O2SAT 97
--- NOTE | 2024-10-25 21:40 | EKG_ITS ---
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
[2024-10-25] MEDS: RINGERS LACTATED 1000 ML 1,000 ML 999 ML IV (21:44)
--- NOTE | 2024-10-25 22:03 | XR_ITS ---
Examination: CT maxillofacial, with contrast 2-D sagittal and coronal reconstructions. 3-D reconstructions Date and time of exam:October 26, 2024 0008 hours INDICATIONS: Facial pain post tooth extraction today CTDI: vol (mGy):16 DLP: (mGycm):306 Technique: Multiple axial images maxillofacial region, 3.0 mm slice thickness, post intravenous injection 25 cc Isovue 370. 2-D sagittal coronal reconstructions. 3-D reconstructions Low dose protocols were performed. One or more of the following dose reduction techniques were used; automated exposure control, adjustment of the mA and/or KV according to patient size, use of iterative reconstruction technique. Findings: Air density in the soft tissue external to the right maxilla Tooth extraction left mandibular molars with bone destruction lateral margin of the left maxilla Fluid/blood in the left maxillary antrum No impingement upon the oropharynx or nasopharynx No soft tissue abscess IMPRESSION: Tooth extractions left mandibular molars with bone destruction lateral margin of the left maxilla Fluid blood in the left maxillary antrum
--- NOTE | 2024-10-25 22:07 | XR_ITS ---
Examination: CT brain head without contrast. 2-D sagittal coronal reconstructions Date and time of exam:October 26, 2024 0006 hours INDICATIONS: Facial and head pain post tooth extraction today, syncope CTDI: vol (mGy):51.5 DLP: (mGycm):1048 Technique: Multiple CT axial sections of the brain have been obtained, 5 mm slice thickness. Contrast has not been administered. 2-D sagittal, coronal reconstructions have been obtained Low dose protocols were performed. One or more of the following dose reduction techniques were used; automated exposure control, adjustment of the mA and/or KV according to patient size, use of iterative reconstruction technique. Findings: No significant ventricular enlargement. Intra-axial or extra-axial hemorrhage density is not seen. No mass effect or midline shift Basal cisterns are not remarkable. Fourth ventricle is midline. Cranial vault intact. Significant opacity in the left maxillary antrum Impression: Negative for acute hemorrhage, mass effect or midline shift
[2024-10-25] MEDS: cefTRIAXone/D5w 1gm IV premix 1 GM/50 ML BAG IV (22:24)
[2024-10-25 22:28] VITALS: BP 131/81; PULSE 113; RESP 17; O2SAT 100
[2024-10-25 22:32] LABS: Lactate (Lactic Acid) 3.1 mMol/L (0.4-2.0)
[2024-10-25 22:43] LABS: Basophils # (Auto) 0.1 Thou/mm3 (0.0-0.2); Basophils % (Auto) 1 % (0-2.5); Eosinophils # (Auto) 0.3 Thou/mm3 (0.0-0.5); Eosinophils % (Auto) 2 % (0-10); Hematocrit 39.7 % (41.0-53.0); Hemoglobin 14.3 g/dL (13.5-16.0); Immature Granulocytes % (Auto) 1 % (0-0); Immature Granulocytes Auto 0.17 Thou/mm3 (0.00-0.00); Lymphocytes # (Auto) 2.3 Thou/mm3 (1.0-4.8); Lymphocytes % (Auto) 19 % (10-50); Mean Corpuscular Hemoglobin 31.2 pg (25.0-35.0); Mean Corpuscular Volume 87 fL (80-100); Monocytes % (Auto) 8 % (0-12); Neutrophils # (Auto) 8.2 Thou/mm3 (1.8-7.7); Neutrophils % (Auto) 69 % (37-80); Nucleated Red Blood Cell % 0 /100 WBC (0); Platelet Count 249 Thou/mm3 (140-440); RDW Standard Deviation 39.6 fL (35.1-43.9); Red Blood Count 4.59 Miln/mm3 (4.50-5.90); White Blood Count 11.9 Thou/mm3 (3.8-10.6)
[2024-10-25 23:01] LABS: Alanine Aminotransferase 55 U/L (10-49); Albumin, Serum 4.3 gm/dL (3.5-5.0); Albumin/Globulin Ratio 2.3 (1.2-2.2); Alkaline Phosphatase 41 U/L (46-116); Anion Gap 12 (7-16); Aspartate Amino Transferase 33 U/L (0-34); BUN/Creatinine Ratio 7 Ratio (12-20); Bilirubin,Total 0.5 mg/dL (0.3-1.2); Blood Urea Nitrogen 10 mg/dL (9-23); Calcium 8.9 mg/dL (8.3-10.6); Calcium (Corrected) 8.9 mg/dL (8.5-10.1); Chloride 104 mMol/L (98-107); Creatine Kinase 55 U/L (34-171); Creatinine (Component) 1.4 mg/dL (0.6-1.3); Estimated Creatinine Clearance 93.5 mL/min (>60); Globulin 1.9 gm/dL (2.3-3.5); Glucose 119 mg/dL (74-106); Osmolality,Calculated 275 (275-295); Potassium 3.8 mMol/L (3.4-5.1); Procalcitonin 0.19 ng/ml (0.0-0.49); Sodium 138 mMol/L (136-145); Total Protein 6.2 gm/dL (5.7-8.2); Troponin I < 0.020 ng/mL (0.0-0.045); eGFR > 60 See Note
[2024-10-25] MEDS: ONDANSETRON INJ 2 MG/ML INJ 2 ML 4 MG IVP (23:32)
[2024-10-25 23:37] LABS: Collection Type, Urine Clean Catch
[2024-10-25 23:54] LABS: Bacteria,Urine 1+; Bilirubin,Urine Negative (Negative); Blood,Urine 1+ (Negative); Clarity,Urine Turbid (Clear/Hazy); Color,Urine Yellow (Lt Yel-Yel); Culture Indicated,Urine Yes; Glucose, Urine 1+ (Negative); Hyaline Casts,Urine 3 /hpf (0-1); Ketones,Urine 1+ (Negative); Leukocyte Esterase,Urine Negative (Negative); Nitrite,Urine Negative (Negative); Protein,Urine 2+ (Neg - Trace); RBC,Urine 9 /hpf (0-3); Renal Epithelial Cells,Urine 3 /hpf (0-5); Specific Gravity,Urine 1.024 (1.001-1.035); Squamous Epithelial Cell,Urine 4 /hpf (0-5); Urobilinogen,Urine Negative mg/dL (0.0-1.0); WBC,Urine 44 /hpf (0-5)
[2024-10-26 00:04] LABS: Amphetamine/Methamp Scrn,U Negative (Negative); Barbiturate Screen,Urine Negative (Negative); Benzodiazepines Screen,Urine Positive (Negative); Benzoylecgonine Screen, Ur Negative (Negative); Fentanyl Screen,Urine Negative (Negative); Opiate Screen,Urine Negative (Negative); THC Screen,Urine Positive (Negative)
--- NOTE | 2024-10-26 00:13 | EKG_ITS ---
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
[2024-10-26 00:45] LABS: Lactate (Lactic Acid) 1.5 mMol/L (0.4-2.0)
[2024-10-26 00:46] VITALS: BP 135/85; PULSE 103; RESP 16; TEMP 36.8; O2SAT 96
--- NOTE | 2024-10-26 00:55 | PRELIM_ITS ---
CT scan of the head without intravenous contrast (axial sections with sagittal and coronal reformats) October 26, 2024 at 0006 hours Clinical History: Head trauma. Comparison: No prior study is available for comparison. Findings: No evidence of intracranial hemorrhage, mass effect or midline shift. The ventricles and CSF spaces are unremarkable. The calvarium is intact. The mastoid air cells are clear. Debris and air-fluid level within the left maxillary sinus. Impression: No evidence of intracranial hemorrhage, midline shift or calvarial fracture. Left maxillary sinusitis. Report Electronically Signed By: Huy Bustillo 10/26/2024 12:54:33 AM [EST]
--- NOTE | 2024-10-26 00:58 | PRELIM_ITS ---
CT maxillofacial with intravenous contrast (axial sections with sagittal and coronal reformats). October 26, 2024 at 0008 hours Clinical History: Abscess, post tooth extraction. Comparison: Compared with the prior CT study dated October 22, 2024. Findings: There is no fracture. The maxillary sinus and orbital valladares are intact. Air- fluid level and heterogenous material within the left maxillary sinus. No evidence of muscle entrapment, intraorbital hematoma, proptosis, globe injury or radiodense foreign body. The zygomatic arches and mandible are intact. The visualized soft tissues are unremarkable. Status post extraction of the most posterior left mandibular molar tooth. No evidence of abscesses. No evidence of abnormal contrast enhancement. Impression: Left maxillary sinusitis. No evidence of abscesses. Report Electronically Signed By: Huy Bustillo 10/26/2024 12:57:08 AM [EST]
[2024-10-26 01:28] LABS: Reflex Lactate? Y
[2024-10-26 02:37] VITALS: BP 129/79; PULSE 100; RESP 18; TEMP 37.2; O2SAT 99
== END 2024-10-26 02:38 | disposition home or self-care (01) ==
PROVIDERS: Emergency Provider Emergency Medicine; PCP Nurse Practitioner Family
DX: R11.10 Vomiting, unspecified (principal); F12.10 Cannabis abuse, uncomplicated; J32.0 Chronic maxillary sinusitis; R00.0 Tachycardia, unspecified; M89.8X8 Other specified disorders of bone, other site
CPT/HCPCS: 36415; 70450; 70487; 80053; 80307; 81001; 82550; 83605; 84145; 84484; 85025; 86850; 86900; 86901; 87040; 87086; 93005; 96361; 96365; 96375; 99285; A4649; J0696; J2405; J7120; Q9967